=== PATIENT | female | born 1940 | race African-American/Black ===

== ENCOUNTER → 2017-02-17 | Outpatient (CLI) | payer MEDICARE ==
--- NOTE | 2017-02-17 12:27 | Diagnostic Imaging Report ---
EXAMINATION: Modified barium swallow. INDICATION: Dysphagia There are no prior studies available for comparison. This study was performed the presence of speech pathologist, Ju. 1 minute and 33 seconds of fluoroscopy time was utilized. The patient was given barium in different substances of swallow including banana, pudding, honey, nectar, and thin barium. She was able swallow the substances without difficulty. There is no evidence for aspiration or penetration. IMPRESSION: The swallowing mechanism is within normal limits. There is no evidence for aspiration or penetration. Dictated by: Dictated on workstation # [id number]
== END ==
LOC: RAD 09:56
PROVIDERS: ATTEND Nurse Practitioner Community Health
DX: R13.14 Dysphagia, pharyngoesophageal phase (principal)
CPT/HCPCS: 74230